=== PATIENT | male | born 1970 | race Caucasian/White ===

== ENCOUNTER 2020-05-02 16:06 | Emergency (ER) | payer OTHER ==
[~2020-05-02] VITALS: Ht 175.3 cm; Wt 97.2 kg
[2020-05-02] MEDS ORDERED: LIDOCAINE 4% CREAM 5GM (LMX4) TOP ONE (17:15)
[2020-05-02 19:19] VITALS: BP 160/102
[2020-05-02] MEDS ORDERED: ANEC4CRE3 TOP (19:21)
== END 2020-05-02 20:04 | disposition home or self-care (01) ==
LOC: M ED 16:06
DX: S46.211A Strain of muscle, fascia and tendon of other parts of biceps, right arm, initial encounter (principal); M79.622 Pain in left upper arm; X50.0XXA Overexertion from strenuous movement or load, initial encounter; Y92.099 Unspecified place in other non-institutional residence as the place of occurrence of the external cause; Y93.89 Activity, other specified; Y99.9 Unspecified external cause status; F17.200 Nicotine dependence, unspecified, uncomplicated

== ENCOUNTER 2025-01-29 16:40 | Emergency (ER) | payer OTHER ==
[~2025-01-29] VITALS: Ht 175.3 cm; Wt 103.5 kg
[~2025-01-29 16:40] MED LIST: ANEC4CRE3 TOP
[2025-01-29 16:59] VITALS: TEMP 96.8
[2025-01-29 17:09] LABS: BASO # 0.0 10^3/uL (0.0-0.2); BASO % 0.5 % (0.0-1.0); EOS # 0.2 10^3/uL (0.0-0.5); EOS % 2.1 % (0.0-3.0); LYMPH # 2.1 10^3/uL (1.5-5.0); LYMPH % 25.5 % (24.0-44.0); MONO # 0.5 10^3/uL (0.0-0.8); MONO % 6.6 % (2.0-8.0); NEUTROPHILS # 5.2 10^3/uL (1.5-8.5); NEUTROPHILS % 64.9 % (36.0-66.0); PLATELET COUNT, AUTOMATED 272 10^3/uL (150-450)
[2025-01-29] MEDS ORDERED: IPRATROPIUM 0.5 MG/ALBUTEROL 2.5 MG INH SOL UD 3 ML NEB PRN (17:15)
[2025-01-29 17:25] LABS: INR 0.93
[2025-01-29] MEDS ORDERED: METO1TAB87 PO (17:27)
[2025-01-29] MEDS ORDERED: ATOR80TA59 PO (17:27)
[2025-01-29] MEDS ORDERED: COMBAER6 INH (17:27)
[2025-01-29] MEDS ORDERED: LOSA25TA13 PO (17:27)
[2025-01-29] MEDS ORDERED: HOME MED LIST COMPLETE! XX SCH (17:30)
[2025-01-29 17:36] LABS: ALT/SGPT 23 U/L (7.0-40); AST/SGOT 19 U/L (<34); CALCIUM LEVEL 8.7 MG/DL (8.5-10.1); CARBON DIOXIDE LEVEL 23 MMOL/L (20-31); CHLORIDE LEVEL 108 MMOL/L (98-107); CK-MB VALUE MASS 1.3 NG/ML (<3.6); CREATININE FOR GFR 0.90 MG/DL (0.70-1.30); GLOMERULAR FILTRATION RATE > 90.0 (>56); POTASSIUM SERUM 3.6 MMOL/L (3.5-5.1); SODIUM LEVEL 141 MMOL/L (136-145)
[2025-01-29 17:38] LABS: CPK CREATINE PHOSPHOKINASE 206 U/L (46-171); MB/CK RELATIVE INDEX 0.63 (< OR =4)
[2025-01-29 17:50] LABS: VENOUS BASE EXCESS 0.2 (-2.0-2.0); VENOUS HCO3 23.0 MMOL/L (23.0-27.0); VENOUS O2 SATURATION 95.0 % (60.0-80.0); VENOUS PARTIAL PRESSURE CO2 32.6 mmHg (38.0-50.0); VENOUS PARTIAL PRESSURE O2 68.1 mmHg (30.0-50.0); VENOUS PH 7.466 UNITS (7.330-7.430); VENOUS STANDARD HCO3 24.6 MMOL/L; VENOUS TOTAL CO2 24.0 MMOL/L (24.0-28.0)
[2025-01-29] MEDS ORDERED: ISOVUE-370 76% 100 ML VIAL As Ordered ONE (18:44)
[2025-01-29] MEDS ORDERED: PRED20TA PO (19:56)
[2025-01-29 20:00] VITALS: BP 140/89; O2SAT 94
== END 2025-01-29 20:34 | disposition home or self-care (01) ==
LOC: M ED 16:40
DX: R07.89 Other chest pain (principal); J98.01 Acute bronchospasm; B34.1 Enterovirus infection, unspecified; I10 Essential (primary) hypertension; E78.5 Hyperlipidemia, unspecified; F17.210 Nicotine dependence, cigarettes, uncomplicated; Z79.51 Long term (current) use of inhaled steroids; Z79.52 Long term (current) use of systemic steroids; Z79.899 Other long term (current) drug therapy
CPT/HCPCS: 71045; 71275; 80048; 80076; 82550; 82553; 82803; 83690; 84484; 85025; 85610; 87486; 87581; 87633; 87798; 93005; 93041; 94760; 96374; 99285; J2919; Q9967